=== PATIENT | male | born 1950 | race Caucasian/White ===

== ENCOUNTER 2017-05-29 21:10 | Emergency (ER) | payer OTHER ==
--- NOTE | 2017-05-29 21:21 | EDPHY ---
H & P Time Seen by Provider: 05/29/17 21:20 Constitutional: Initial Vital Signs Temperature (C) 37.0 C 05/29/17 21:23 Heart Rate 93 05/29/17 21:23 Respiratory Rate 20 05/29/17 21:23 Blood Pressure 116/96 H 05/29/17 21:23 O2 Sat (%) 96 05/29/17 21:23 O2 Delivery Mode Nasal Cannula O2 (L/minute) 3 Medical Decision Making ED Course/Re-evaluation: CHIEF COMPLAINT: Lost medication HISTORY OF PRESENT ILLNESS: The patient is a homeless 66 y/o male who lost his recently prescribed cardiac medications. He was evaluated at [facility] one week ago for dyspnea and had a cardiac work up that did not require follow up per patient. He was discharged with prescriptions, but has since lost them. He is unable to tell me what prescriptions these were or the specifics of what testing was performed at that visit. He denies other complaints. He is a poor historian. REVIEW OF SYSTEMS: A 10 point review of systems was performed and is negative with the exception of the elements mentioned in the history of present illness. PHYSICAL EXAM: HR, BP, O2 Sat, RR. Temp noted General Appearance: Alert, well hydrated, appropriate, and non-toxic appearing. Head: Atraumatic without scalp tenderness or obvious injury Eyes: Pupils equal, round, reactive to light and accommodation, EOMI, no trauma , no injection. Nose: Atraumatic, no rhinorrhea, clear. Throat: Mucus membranes moist. Neck: Supple Respiratory: No retractions, no distress, no wheezes, and no accessory muscle use. Lungs are clear to auscultation bilaterally. Cardiovascular: Regular rate and rhythm, no murmurs, rubs, or gallops. Good capillary refill all extremities. Gastrointestinal: Abdomen is soft, nontender, non-distended, no masses, no rebound, no guarding, no peritoneal signs. Musculoskeletal: Normal active ROM of all extremities, atraumatic. Neurological: Alert, appropriate, and interactive. The patient has non-focal cranial nerves, motor, sensory, and cerebellar exam. Skin: No rashes, good turgor, no nodules on palpation. Past medical history: COPD, otherwise unknown Past surgical history: Unknown Family history: Noncontributory Social history: Homeless DIAGNOSTICS/PROCEDURES/CRITICAL CARE TIME: The 12 lead EKG was interpreted by cotyelf. Sinus mechanism, no ischemia. See hard copy and/or "tracemaster" electronic copy for interpretation. DIFFERENTIAL DIAGNOSIS: The differential diagnosis for the patient's presentation included but was not limited to requesting medication refill, malingering. MEDICAL DECISION MAKING: This is a 66 y/o male who is a poor historian who is requesting medication refills for unknown prescriptions that he lost after a hospital visit to [facility] last week. His exam is unremarkable as is his EKG. He has no active complaints, so we will not pursue further testing here as he recently had a work up for this. We have requested medical records from [facility] to find out which medications he needs. Records show he had a normal cardiac work up at [place], but went to [facility] afterwards for dyspnea. He again had a largely negative work up. He received a prescription for an albuterol inhaler and azithromycin. He apparently returned to [facility] ED again the same day for the same complaint, but left without being seen. He has remained hemodynamically stable throughout stay here. He will be discharged home in stable condition with referral to PCP. Return precautions given. Departure - Departure Disposition: Home, Routine, Self-Care Clinical Impression: Encounter for medication refill Condition: Good Instructions: Normal Exam (ED) Additional Instructions: Follow up with [facility] to establish care. Referrals: [facility],. [Clinic] - As per Instructions Report Scribed for: Kit Narvaez Report Scribed by: Jojo Dubon Date of Report: 05/29/17 Time of Report: 21:40
--- NOTE | 2017-05-29 21:25 | CPEKG ---
Heart Rate: 95 RR Interval: 632 P-R Interval: 128 QRSD Interval: 78 QT Interval: 376 QTC Interval: 473 P Lanett: 75 QRS Lanett: -47 T Wave Lanett: 71 EKG Severity - ABNORMAL ECG - EKG Impression: SINUS RHYTHM EKG Impression: ATRIAL PREMATURE COMPLEX EKG Impression: LAD, CONSIDER LEFT ANTERIOR FASCICULAR BLOCK Electronically Signed By: Harsha Johnson 30-May-2017 06:59:09
[2017-05-29 23:04] VITALS: BP 136/90; PULSE 90; RESP 16; TEMP 98.4; O2SAT 90
== END 2017-05-29 23:04 | disposition home or self-care (01) ==
DX: Z76.0 Encounter for issue of repeat prescription (principal); J44.9 Chronic obstructive pulmonary disease, unspecified